=== PATIENT | male | born 1945 | race Caucasian/White ===

== ENCOUNTER 2018-02-25 13:06 | Emergency (ER) | payer OTHER ==
[~2018-02-25] VITALS: Ht 172.7 cm; Wt 100.0 kg
[2018-02-25 13:12] VITALS: TEMP 98.1
[2018-02-25 16:13] VITALS: BP 149/99; PULSE 87
== END 2018-02-25 16:14 | disposition home or self-care (01) ==
LOC: COL.ER 13:06
DX: S06.0X0A Concussion without loss of consciousness, initial encounter (principal); S16.1XXA Strain of muscle, fascia and tendon at neck level, initial encounter; E11.9 Type 2 diabetes mellitus without complications; V43.92XA Unspecified car occupant injured in collision with other type car in traffic accident, initial encounter